=== PATIENT | male | born 1945 | race Two or more races ===

== ENCOUNTER 2018-12-03 03:15 | Emergency (ER) | payer OTHER, MEDICAID ==
[~2018-12-03] VITALS: Ht 170.2 cm; Wt 56.7 kg
[2018-12-03 04:23] LABS: Basophils # (auto) 0 uL; Basophils % (auto) 0.8 % (0.0-2.0); Eosinophils # (auto) 0.2 uL; Eosinophils % (auto) 3.5 % (0.0-7.0); Hematocrit 34.4 % (41.0-53.0); Hemoglobin 11.7 g/dL (13.5-17.5); Lymphocytes # (auto) 1.8 uL; Lymphocytes % (auto) 30.6 % (10.0-50.0); Mean Corpuscular Hemoglobin 28.9 pg (28.0-32.0); Mean Corpuscular Volume 84.9 fL (80.0-100.0); Monocytes # (auto) 0.5 uL; Monocytes % (auto) 8.9 % (0.0-12.0); Neutrophils # (auto) 3.3 uL; Neutrophils % (auto) 56.2 % (37.0-80.0); Nucleated Red Blood Cells % 0.1 %; Platelet Count (auto) 222 10^3/uL (140-450); Red Blood Cells 4.06 10^6/uL (4.5-5.90); Red Cell Distribution Width 14.4 % (11.8-14.3); White Blood Cell 5.9 10^3/uL (4.4-10.8)
[2018-12-03 04:39] LABS: Alanine Aminotransferase 17 U/L (16-61); Anion Gap 7 (5-15); Blood Urea Nitrogen 15 mg/dL (7-18); Calcium 8.5 mg/dL (8.5-10.1); Carbon Dioxide 27 mmol/L (21-32); Chloride 108 mmol/L (98-107); Glucose 164 mg/dL (74-106); Magnesium 1.6 mg/dL (1.6-2.6); Potassium 3.9 mmol/L (3.5-5.1); Sodium 142 mmol/L (136-145)
[2018-12-03 04:44] LABS: Alkaline Phosphatase 108 U/L (45-117); Aspartate Aminotransferase 10 U/L (15-37); Bilirubin, Total 0.3 mg/dL (0.2-1.0); GFR African American 123 mL/min; GFR Non-African American 102 mL/min; Total Protein 6.6 g/dL (6.4-8.2)
[2018-12-03] MEDS ORDERED: ASPirin 81 mg TAB PO ONE (07:15)
[2018-12-03 07:16] VITALS: BP 119/58
== END 2018-12-03 08:08 | disposition home or self-care (01) ==
LOC: ER 03:15
DX: R07.89 Other chest pain (principal); E11.9 Type 2 diabetes mellitus without complications; I10 Essential (primary) hypertension; Z86.73 Personal history of transient ischemic attack (TIA), and cerebral infarction without residual deficits
CPT/HCPCS: 36415; 71045; 80053; 83735; 83880; 84484; 85025; 93005